=== PATIENT | female | born 1940 | race Caucasian/White ===

== ENCOUNTER → 2018-01-18 | Outpatient (CLI) | payer OTHER | LOC: HRAD 09:44 | PROVIDERS: ATTEND Urology | DX: N28.89 Other specified disorders of kidney and ureter (principal) ==

== ENCOUNTER 2018-01-30 06:23 | Day surgery (SDC) | payer OTHER ==
[~2018-01-30] VITALS: Ht 170.2 cm; Wt 113.6 kg
[2018-01-30] MEDS ORDERED: SODIUM CHLOR 0.9% 1000 ML INJ 1,000 ML IV SCH (07:15)
[2018-01-30 07:16] VITALS: BP 158/74; PULSE 68; RESP 18; TEMP 97.5; O2SAT 96
[2018-01-30] MEDS ORDERED: TELM20 PO (07:23)
[2018-01-30] MEDS ORDERED: OMEG1CAP53 PO (07:24)
[2018-01-30] MEDS ORDERED: LEVO-86 PO (07:26)
[2018-01-30] MEDS ORDERED: ROSU10 PO (07:27)
[2018-01-30] MEDS ORDERED: METO50TA PO (07:28)
[2018-01-30] MEDS ORDERED: GEMF600T PO (07:30)
[2018-01-30] MEDS ORDERED: ROPI0.25 PO (07:30)
[2018-01-30] MEDS ORDERED: NEXI40CA PO (07:31)
[2018-01-30] MEDS ORDERED: MONT10TA4 PO (07:31)
[2018-01-30] MEDS ORDERED: GABA300C5 PO (07:32)
[2018-01-30] MEDS ORDERED: ADVA230A INH (07:34)
[2018-01-30] MEDS ORDERED: ASPI81CH6 CHEW (07:34)
[2018-01-30] MEDS ORDERED: ALBU0.08 NEB (07:36)
[2018-01-30] MEDS ORDERED: LANTUS2P SQ (07:38)
[2018-01-30] MEDS ORDERED: MULT10CA PO (07:38)
[2018-01-30] MEDS ORDERED: CALC1TAB87 PO (07:39)
[2018-01-30] MEDS ORDERED: NOVONP2 SQ (07:39)
[2018-01-30] MEDS ORDERED: MULT1TAB46 PO (07:41)
[2018-01-30] MEDS ORDERED: CRANCAP2 PO (07:42)
--- NOTE | 2018-01-30 09:09 | RADRPT ---
EXAM DATE: 01/30/2018 8:38 AM EDT AGE/SEX: 77 years / Female INDICATIONS: Left renal mass. COMPARISON: [facility] [place], INVASIVE RADIOLOGY CONSULT, 01/18/2018. . FINDINGS: The outside CT of the abdomen and pelvis dated 01/04/2018 from [facility] was reviewed for possi ble percutaneous biopsy. The subtle 1.5 cm solid left renal mass within the midpole is very centrally located with the left renal vein and artery draped over the mass. Unfortunately, the risk of percuta neous biopsy of this lesion is extremely high for hemorrhage complication similar to the risk for cry oablation. Therefore, a percutaneous biopsy was not performed. Continued imaging surveillance is hilario mmended to confirm stability. The findings were discussed in detail with the patient and her family. CONCLUSION: 1. Percutaneous biopsy of left renal mass was not performed due to very high risk of hemorrhage comp lication similar to the risk for cryoablation of this lesion. Continued imaging surveillance of this lesion is recommended at this time. Electronically signed by: Willie Mckeon MD 01/30/2018 9:08 AM EDT
== END 2018-01-30 08:30 | disposition home or self-care (01) ==
LOC: HRAD 06:23 → HRIP 06:25 → HRAD 08:30
PROVIDERS: ATTEND Urology
DX: D41.02 Neoplasm of uncertain behavior of left kidney (principal)
CPT/HCPCS: J7030